=== PATIENT | female | born 1980 | race Caucasian/White ===

== ENCOUNTER 2022-06-20 10:35 | Emergency (ER) | payer BC, OTHER, SELFPAY ==
--- NOTE | ~2022-06-20 | CT_ITS ---
EXAMINATION: CT abdomen pelvis w con DATE: 06/20/2022 12:57 INDICATION: Left upper quadrant abdominal pain, bloody stool. TECHNIQUE: Computed tomography (CT) of the abdomen and pelvis was performed with 100 CC Omnipaque 350 intravenous contrast. Automated exposure control and iterative reconstruction technique were employe d. Exam dose: 1162.46 mGy-cm total exam DLP. COMPARISON: None. FINDINGS: The lung bases are clear. Normal heart size. No pericardial or pleural effusion. Status post gastric bypass surgery. Status post cholecystectomy. The liver, spleen, pancreas, and adrenal glands and kidneys are unremark able. Normal caliber of the abdominal aorta. No intraperitoneal or retroperitoneal or pelvic mass les ion or adenopathy or ascites. 2.2 x 3.6 cm peripherally enhancing right ovarian cyst. The uterus and adnexal areas are otherwise un remarkable. The urinary bladder is relatively evacuated, otherwise unremarkable. Normal appendix. There are fluid levels in the colon which is an abnormal finding, sternum and recent enemas. No bowel obstruction, bowel wall thickening, pneumatosis or intraperitoneal free air. Degenerative change of the lumbar spine. IMPRESSION: Status post gastric bypass Status post cholecystectomy Normal appendix 2.2 x 3.6 cm right ovarian cyst Reviewed, dictated and finalized at [facility] Reviewed, dictated and finalized at [facility].
[2022-06-20 10:37] VITALS: BP 104/62; PULSE 92; RESP 18; TEMP 36.7; O2SAT 97
[2022-06-20 11:26] LABS: Basophils Absolute Auto 0.1 K/mm3 (0.0-0.1); Eosinophils Percent Auto 0.6 % (0-4.4); Hematocrit 34.1 % (37.0-47.0); Hemoglobin 10.7 g/dL (12.0-15.0); Immature Granulocyte Absolute 0.01 K/mm3 (0.00-0.031); Immature Granulocyte Percent A 0.1 % (0-0.5); Lymphocytes Absolute Auto 1.43 K/mm3 (0.9-3.2); Lymphocytes Percent Auto 19.8 % (18.3-44.2); Mean Corpuscular HGB Conc 31.4 g/dl (32-36); Mean Corpuscular Volume 79.7 fl (80-100); Mean Platelet Volume 10.5 fl (7.4-10.4); Monocytes Absolute Auto 0.4 K/mm3 (0.1-0.6); Neutrophils Absolute Auto 5.2 K/mm3 (1.3-6.7); Neutrophils Percent Auto 72.5 % (45.5-73.1); Platelet Count Result 281 k/mm3 (150-375); Red Blood Count 4.28 M/mm3 (4.2-5.4); Red Cell Distribution Width 15.7 % (11.5-14.5); White Blood Count 7.2 K/mm3 (4.5-10.0)
[2022-06-20 11:40] LABS: Alanine Aminotransferase 13 U/L (6-35); Albumin Level 4.7 g/dL (3.5-5.1); Alkaline Phosphatase 61 U/L (38-126); Anion Gap 13 mmol/L (8-16); Aspartate Amino Transferase 24 U/L (14-36); Bilirubin,Total 0.3 mg/dL (0.2-1.3); Blood Urea Nitrogen 8 mg/dL (7-17); Calcium 8.7 mg/dL (8.4-10.2); Carbon Dioxide 24 mmol/L (22-30); Chloride 106 mmol/L (98-107); Estimated CRCL calculation 149 ml/min; Estimated Glomerular Filt Rate > 60; Glucose 100 mg/dL (65-110); Lipase 46 U/L (23-300); Potassium 3.8 mmol/L (3.4-5.0); Sodium 143 mmol/L (137-145)
[2022-06-20] MEDS: SODIUM CHLORIDE 0.9% IV 1,000 ML 999 ML IV CONT (12:35)
[2022-06-20 13:01] LABS: Appearance Urine Clear (Clear); Bilirubin Urine Negative (Negative); Blood Urine Negative (Negative); Color Urine Yellow (Yellow); Glucose Urine UA Negative (Negative); Ketones Urine 1+ mg/dL (Negative); Leukocyte Esterase Ur Negative LEU/UL (Negative); Nitrate Urine Negative (Negative); Protein Urine Negative (Negative); Specific Grav Ur >= 1.030 (1.001-1.035); Urobilinogen Urine 0.2 mg/dL (<2.0)
[2022-06-20 13:13] LABS: Bacteria Urine Trace /hpf; Mucus Urine Few /lpf; Squamous Epithelial Cell Urine Moderate /hpf (Few)
[2022-06-20 13:28] LABS: Add Urine Microscopic? YES
--- NOTE | 2022-06-20 14:37 | ED.GENADULT ---
HPI - General Adult General Chief complaint: Abdominal Pain Stated complaint: ABD pain Time Seen by Provider: 06/20/22 11:59 History of Present Illness HPI narrative: Patient is a 42-year-old female who presents ER with bright red blood in her stool. Occurred x1 today. No diarrhea. It was mixed with her stool and on the toilet paper when she wiped. She does not feel any hemorrhoids and has no history of hemorrhoids. No recent straining. She reports some burning discomfort in her upper abdomen. No nausea or vomiting or hematemesis or coffee-ground emesis. Denies fevers or chills or sweats. She has not any blood thinners. Related Data Allergies Allergy/AdvReac Type Severity Reaction Status Date / Time No Known Allergies Allergy Mild Unverified 04/19/11 18:19 Review of Systems Review of Systems: All systems reviewed & are unremarkable except as noted in HPI and below Constitutional: Constitutional: Denies chills, Denies fatigue and Denies fever(s) ENT: Denies nasal congestion and Denies sore throat Cardiovascular: Cardiovascular: Denies chest pain, Denies rapid heart rate and Denies radiating jaw, neck or arm pain Respiratory: Respiratory: Denies cough and Denies dyspnea Gastrointestinal: Gastrointestinal: Reports abdominal pain, Denies nausea and Denies vomiting Comments: Rectal bleeding Genitourinary: Genitourinary: Denies abnormal vaginal bleeding, Denies nocturia and Denies dysuria PMFSH Past Medical History Medical History (Updated 06/20/22 @ 14:56 by Amanuel Clayton MD) Anxiety Surgical History Surgical History (Updated 06/20/22 @ 14:38 by Amanuel Clayton MD) H/O gastric bypass History of appendectomy Social History Social History (Updated 06/20/22 @ 14:39 by Amanuel Clayton MD) Smoking status: Never smoker Exam Narrative: GENERAL: Well-appearing, well-nourished, and in no acute distress. HEAD: Normocephalic, atraumatic. EYES: PERRL and EOMI. ENT: Mucous membranes moist. CHEST: Clear to auscultation. No respiratory distress. HEART: Regular rate and rhythm. Normal peripheral pulses. ABDOMEN: Soft, nontender, nondistended. Faint pink blood on digital rectal exam free of stool. No external hemorrhoids. EXTREMITIES: Normal range of motion. No edema. SKIN: Warm, dry, no rash. NEURO: Alert and oriented x3. PSYCH: Normal mood and affect. Course Course Emergency Course: Radiologist did see some fluid in the colon on CT scan. Patient may be having a mild colitis. Discharge home with treatment. Vital Signs Vital signs: Vital Signs Temperature 98.1 F 06/20/22 10:37 Pulse Rate 92 06/20/22 10:37 Respiratory Rate 18 06/20/22 10:37 Blood Pressure 104/62 06/20/22 10:37 Pulse Oximetry 97 06/20/22 10:37 Oxygen Delivery Room Air 06/20/22 10:37 Temperature 98.1 F 06/20/22 10:37 Pulse Rate 92 06/20/22 10:37 Respiratory Rate 18 06/20/22 10:37 Blood Pressure 104/62 06/20/22 10:37 Pulse Oximetry 97 06/20/22 10:37 Oxygen Delivery Room Air 06/20/22 10:37 Medical Decision Making Vital Signs Vital Signs: Vital Signs Temperature 98.1 F 06/20/22 10:37 Pulse Rate 92 06/20/22 10:37 Respiratory Rate 18 06/20/22 10:37 Blood Pressure 104/62 06/20/22 10:37 Pulse Oximetry 97 06/20/22 10:37 Oxygen Delivery Room Air 06/20/22 10:37 Temperature 98.1 F 06/20/22 10:37 Pulse Rate 92 06/20/22 10:37 Respiratory Rate 18 06/20/22 10:37 Blood Pressure 104/62 06/20/22 10:37 Pulse Oximetry 97 06/20/22 10:37 Oxygen Delivery Room Air 06/20/22 10:37 Lab Data Result diagrams: 06/20/22 11:20 06/20/22 11:20 Labs: Lab Results 06/20/22 06/20/22 06/20/22 Range/Units 11:20 11:20 12:37 WBC 7.2 (4.5-10.0) K/mm3 RBC 4.28 (4.2-5.4) M/mm3 Hgb 10.7 L (12.0-15.0) g/dL Hct 34.1 L (37.0-47.0) % MCV 79.7 L (80-100) fl MCH 25.0 L (26-34) pg MCHC 31.4 L
== END 2022-06-20 15:30 | disposition home or self-care (01) ==
PROVIDERS: Emergency Medicine; Emergency Provider Emergency Medicine
DX: K52.9 Noninfective gastroenteritis and colitis, unspecified (principal); Z98.84 Bariatric surgery status
CPT/HCPCS: 36415; 74177; 80053; 81001; 81025; 83690; 85025; 87077; 87086; 87186; 96360; 96361; 99284; J7030; Q9967

== ENCOUNTER 2022-10-31 14:39 | Emergency (ER) | payer OTHER, SELFPAY ==
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
[2022-10-31 14:47] VITALS: BP 113/64; PULSE 91; RESP 18; TEMP 36.6; O2SAT 100
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
[2022-10-31 18:03] LABS: Basophils Absolute Auto 0.1 K/mm3 (0.0-0.1); Basophils Percent Auto 0.5 % (0.2-1.2); Eosinophils Percent Auto 0.1 % (0-4.4); Hematocrit 33.3 % (37.0-47.0); Hemoglobin 10.5 g/dL (12.0-15.0); Immature Granulocyte Absolute 0.06 K/mm3 (0.00-0.031); Immature Granulocyte Percent A 0.4 % (0-0.5); Lymphocytes Percent Auto 15.8 % (18.3-44.2); Mean Corpuscular HGB Conc 31.5 g/dl (32-36); Mean Corpuscular Hemoglobin 25.2 pg (26-34); Mean Platelet Volume 10.5 fl (7.4-10.4); Monocytes Absolute Auto 1.1 K/mm3 (0.1-0.6); Monocytes Percent Auto 7.7 % (2.6-8.5); Neutrophils Absolute Auto 10.5 K/mm3 (1.3-6.7); Neutrophils Percent Auto 75.5 % (45.5-73.1); Platelet Count Result 364 k/mm3 (150-375); Red Blood Count 4.16 M/mm3 (4.2-5.4); White Blood Count 13.9 K/mm3 (4.5-10.0)
[2022-10-31 18:05] LABS: Add Urine Microscopic? YES; Appearance Urine Clear (Clear); Bilirubin Urine Negative (Negative); Blood Urine Trace-Intact (Negative); Color Urine Light Yellow (Yellow); Glucose Urine UA Negative (Negative); Ketones Urine Negative (Negative); Leukocyte Esterase Ur Negative LEU/UL (Negative); Nitrate Urine Negative (Negative); Protein Urine Negative (Negative); Specific Grav Ur >= 1.030 (1.001-1.035); Urobilinogen Urine 0.2 mg/dL (<2.0)
[2022-10-31 18:09] LABS: Acetaminophen < 10 ug/mL (10-30); Ethanol < 10 mg/dL (<10); Salicylate < 1.0 mg/dL (2-20)
[2022-10-31 18:10] LABS: Alanine Aminotransferase 23 U/L (6-35); Albumin Level 4.8 g/dL (3.5-5.1); Alkaline Phosphatase 90 U/L (38-126); Anion Gap 9 mmol/L (8-16); Aspartate Amino Transferase 27 U/L (14-36); Bilirubin,Total 0.8 mg/dL (0.2-1.3); Blood Urea Nitrogen 8 mg/dL (7-17); Calcium 8.9 mg/dL (8.4-10.2); Carbon Dioxide 26 mmol/L (22-30); Chloride 101 mmol/L (98-107); Estimated CRCL calculation 130 ml/min; Estimated Glomerular Filt Rate > 60; Glucose 100 mg/dL (65-110); Potassium 3.4 mmol/L (3.4-5.0); Sodium 136 mmol/L (137-145)
[2022-10-31 18:12] LABS: Bacteria Urine Trace /hpf; Mucus Urine Moderate /lpf; Squamous Epithelial Cell Urine Many /hpf (Few)
--- NOTE | 2022-10-31 18:28 | PC.NURSE ---
Patient to see crisis about personal issues in life. Patient denies SI/HI
[2022-10-31 18:40] LABS: Barbiturate Screen Urine Negative (Negative); Benzodiazepines Screen Urine Negative (Negative)
[2022-10-31 18:45] LABS: Amphetamine Screen Urine Negative (Negative); Cannabinoid Screen Urine Positive (Negative); Cocaine Screen Urine Positive (Negative); Opiate Screen Urine Negative (Negative); Phencyclidine Screen Urine Negative (Negative)
--- NOTE | 2022-10-31 18:45 | PCCCNOTE ---
Per Bedside RN, patient asked for resources for counseling. CC provided her a list of local counselors and agencies/ CC will continue to follow for any other needs that may arise.
[2022-10-31 18:51] LABS: Methadone Screen Urine Negative (Negative)
[2022-10-31] MEDS: CYCLOBENZAPRINE HCL 10 MG TABLET PO (19:49)
[2022-10-31] MEDS: ACETAMINOPHEN 500 MG TABLET 1000 MG PO (19:50)
[2022-10-31] MEDS: IBUPROFEN 600 MG TABLET PO (19:50)
[2022-10-31 19:56] LABS: Influenza A QL RT-PCR Negative (Negative); Influenza B QL RT-PCR Negative (Negative); RSV RNA, RT-PCR Negative (Negative); SARS-CoV-2 RNA PCR Negative
--- NOTE | 2022-10-31 20:22 | PC.NURSE ---
Crisis called. Spoke with Sailaja and she states someone will be out to speak with patient.
--- NOTE | 2022-10-31 21:16 | PC.NURSE ---
Patient doing phone interview with social service manager from [place]
--- NOTE | 2022-10-31 22:25 | PC.NURSE ---
Patient cleared from [facility] for outpatient counseling. Dr Clayton made aware
[2022-10-31 22:28] VITALS: BP 106/50; PULSE 75; RESP 18; TEMP 36.6; O2SAT 99
== END 2022-10-31 23:13 | disposition home or self-care (01) ==
PROVIDERS: Emergency Medicine; Emergency Provider Emergency Medicine
DX: S60.221A Contusion of right hand, initial encounter (principal); S50.11XA Contusion of right forearm, initial encounter; S80.11XA Contusion of right lower leg, initial encounter; S00.03XA Contusion of scalp, initial encounter; T76.21XA Adult sexual abuse, suspected, initial encounter; Z20.822 Contact with and (suspected) exposure to COVID-19; V89.2XXA Person injured in unspecified motor-vehicle accident, traffic, initial encounter; Y92.410 Unspecified street and highway as the place of occurrence of the external cause
CPT/HCPCS: 36415; 70450; 73090; 73130; 80053; 80307; 81001; 84443; 85025; 87086; 87088; 87637; 99284; A9270